=== PATIENT | female | born 1995 | race Caucasian/White ===

== ENCOUNTER 2017-02-06 12:18 | Emergency (ER) | payer MEDICAID ==
[~2017-02-06] VITALS: Ht 167.6 cm; Wt 78.5 kg
[2017-02-06 12:49] VITALS: Ht 167.6 cm; Wt 78.5 kg
[2017-02-06 15:41] LABS: ADD SCAN DIFF NO
[2017-02-06 15:42] LABS: ADD UMIC YES; URINE BILIRUBIN (Dip) NEGATIVE (NEGATIVE); URINE BLOOD (Dip) 3+ (NEGATIVE); URINE COLOR LT. YELLOW (YELLOW); URINE GLUCOSE (Dip) NEGATIVE (NEGATIVE); URINE KETONES (Dip) NEGATIVE (NEGATIVE); URINE LEUKOCYTE ESTERASE (Dip) NEGATIVE (NEGATIVE); URINE NITRITE (Dip) NEGATIVE (NEGATIVE); URINE TOTAL PROTEIN (Dip) NEGATIVE (NEGATIVE); URINE UROBILINOGEN (Dip) 0.2 E.U./dL (0.1-1.0)
[2017-02-06 15:43] LABS: BASOPHILS % 0.3 % (0.0-2.0); EOSINOPHILS # 0.2 10^3/ul (0.0-0.5); HEMATOCRIT 40.1 % (37.0-47.0); HEMOGLOBIN 13.5 g/dl (12.0-16.0); LYMPHOCYTES # 2.3 10^3/ul (0.8-2.9); LYMPHOCYTES % 24.9 % (15.0-51.0); MEAN CORPUSCULAR HEMOGLOBIN 30.3 pg (29.0-33.0); MEAN CORPUSCULAR HGB CONC 33.7 g/dl (32.0-37.0); MEAN CORPUSCULAR VOLUME 89.9 fl (82.0-101.0); MEAN PLATELET VOLUME 9.4 fl (7.4-10.4); MONOCYTE # 0.6 10^3/ul (0.3-0.9); MONOCYTES % 6.1 % (0.0-11.0); NEUTROPHILS % 66.4 % (39.0-77.0); PLATELET COUNT 329 10^3/UL (140-415); RED BLOOD COUNT 4.46 10^6/ul (4.20-5.40); RED CELL DISTRIBUTION WIDTH 13.3 % (11.5-14.5)
--- NOTE | 2017-02-06 15:55 | RADRPT ---
PROCEDURE: Obstetrical ultrasound . CLINICAL INDICATION: Vaginal bleeding TECHNIQUE: Multiple sonographic images of the pelvis were obtained utilizing a transabdominal and endovaginal technique. The images were reviewed on a PACS workstation. COMPARISON: None. FINDINGS: There is a single intrauterine present with the crown-rump length measuring 0.5 cm which c orresponds to a calculated gestational age of 6 weeks and 2 days. No heart tones are identifie d. The right ovary was not seen. The left ovary is normal and measures 3.5 x 2.4 x 2.9 cm. There is a 1.2 cm simple cyst. There is a trace amount of free fluid in the cul-de-sac. RPTAT: AA IMPRESSION: Single intrauterine at 6 weeks and 2 days. No heart tones noted, suspicious for demise versus early . Close follow-up is recommended. .Jarvis Mckay MD, MD Date Time Electronically viewed and signed by .Jarvis Mckay MD, on 02/06/2017 15:55 .S/
[2017-02-06 15:57] LABS: SQUAMOUS EPITHELIAL CELL,UR MODERATE
--- NOTE | 2017-02-06 16:15 | ERA ---
ER Documentation Chief Complaint Date/Time DATE: 02/06/17 TIME: 16:11 Chief Complaint VB AND 1 MONTH BLEEDING X 1 DAY, DENIES PAIN HPI Patient is a 21-year-old female who is 6 weeks 2 days complaining of vaginal bleeding. Patient's of the vaginal bleeding at first was spotting and now is dark brown. Patient states that she has never had symptoms like this before. Patient 1-2 months ago had a contraceptive device taken of the arm that was implanted in July. Patient denies any abdominal pain, dysuria, hematuria, discharge, vomiting, nausea, using more than 4 pads a day to control bleeding, dizziness, diarrhea, constipation, back pain, fever. This patient's first . ROS All systems reviewed and are negative except as per history of present illness. Allergies Allergies: Coded Allergies: No Known Allergy (Unverified , 08/17/14) PMhx/Soc Medical and Surgical Hx: pt denies Medical Hx, pt denies Surgical Hx Hx Alcohol Use: No Hx Substance Use: No Hx Tobacco Use: No Physical Exam Vitals Vital Signs Date Time Temp Pulse Resp B/P Pulse Ox O2 Delivery O2 Flow Rate FiO2 02/06/17 12:49 98.6 79 18 130/73 100 Physical Exam Const: Well-appearing 19-year-old female Head: Atraumatic Eyes: Normal Conjunctiva ENT: Normal External Ears, Nose and Mouth. Neck: Full range of motion..~ No meningismus. Resp: Clear to auscultation bilaterally Cardio: Regular rate and rhythm, no murmurs Abd: Soft, non tender, non distended. Normal bowel sounds Skin: No petechiae or rashes Back: No midline or flank tenderness Ext: No cyanosis, or edema Neur: Awake and alert Psych: Normal Mood and Affect Result Diagram: 02/06/17 1530 Results 24 hrs Laboratory Tests Test 02/06/17 15:17 02/06/17 15:30 Urine Color LT. YELLOW Urine Clarity CLEAR Urine pH 6.0 Urine Specific Mittie 1.025 Urine Ketones NEGATIVE Urine Nitrite NEGATIVE Urine Bilirubin NEGATIVE Urine Urobilinogen 0.2 E.U./dL Urine Leukocyte Esterase NEGATIVE Urine Microscopic RBC 2-5/HPF Urine Microscopic WBC 0-2/HPF Urine Squamous Epithelial Cells MODERATE Urine Hemoglobin 3+ Urine Glucose NEGATIVE% Urine Total Protein NEGATIVE White Blood Count 9.010^3/ul Red Blood Count 4.4610^6/ul Hemoglobin 13.5g/dl Hematocrit 40.1% Mean Corpuscular Volume 89.9fl Mean Corpuscular Hemoglobin 30.3pg Mean Corpuscular Hemoglobin Concent 33.7g/dl Red Cell Distribution Width 13.3% Platelet Count 70938^3/UL Mean Platelet Volume 9.4fl Neutrophils % 66.4% Lymphocytes % 24.9% Monocytes % 6.1% Eosinophils % 2.0% Basophils % 0.3% Nucleated Red Blood Cells % 0.0/100WBC Neutrophils # 6.010^3/ul Lymphocytes # 2.310^3/ul Monocytes # 0.610^3/ul Eosinophils # 0.210^3/ul Basophils # 0.010^3/ul Nucleated Red Blood Cells # 0.010^3/ul Beta HCG, Quantitative 62089.0mIU/ml Procedures/MDM 19-year-old female is presenting with a chief complaint of abdominal bleeding. Patient is 6 weeks . Went ahead and ordered a female senior mobile application developer workup including beta-hCG, labs and ultrasound. The ultrasound showed no heart tones as the fetus is only 6 weeks. There was a single intrauterine growth. All other labs were unremarkable. Physical exam was unremarkable. Speculum exam was deferred. Have advised the patient that she should follow-up with her PATIENT RELATIONS MANAGER in 2 days for repeat beta hCG measure. I have also advised patient to return to the emergency department immediately if symptoms worsen or change. Departure Diagnosis: Primary Impression: Threatened Additional Impression: Vaginal bleeding Condition: Stable Patient Instructions: Vaginal Bleed in Additional Instructions: Follow-up with your PATIENT RELATIONS MANAGER in 2 days for repeat hormone level checking. Bedrest and no vaginal penetration until then. Return to emergency department if symptoms worsen or change. JONH DIANA PA-C Feb 06, 2017 16:15
[2017-02-06 17:25] VITALS: BP 127/74; PULSE 82; RESP 16
== END 2017-02-06 17:26 | disposition home or self-care (01) ==
LOC: FTE 12:18
DX: O20.0 Threatened abortion (principal); Z3A.01 Less than 8 weeks gestation of pregnancy
CPT/HCPCS: 36415; 76801; 76817; 81001; 84702; 85025; 86900; 86901; Z7502; 81003

== ENCOUNTER 2017-09-14 09:18 | Inpatient (IN) | payer MEDICAID ==
[~2017-09-14] VITALS: Ht 165.1 cm; Wt 84.7 kg
[2017-09-14] MEDS ORDERED: PREN-93 PO (09:49)
[2017-09-14] MEDS ORDERED: FER325 PO (09:49)
[2017-09-14 09:50] VITALS: BP 110/64; PULSE 86; RESP 18; Ht 165.1 cm; Wt 84.7 kg
--- NOTE | 2017-09-14 12:29 | TRIAGE ---
OB Triage Datetime Report Generated by CPN: 09/14/2017 12:28 Datetime: 09/14/2017 09:53 Vaginal Exam Dilatation (cms): 3.0 Effacement (%): 80 Station: -2 Exam By: KHEMANI Vaginal Bleeding: None Cervix, Consistency: Soft Cervix, Position: Midposition Datetime: 09/14/2017 09:41 Labor Evaluation Monitor Mode: External Heart Rate Monitor Mode: External US Datetime: 09/14/2017 09:28 Assessment Type: Triage Maternal Assessment Level of Consciousness: Fully Conscious DTR's/Clonus: DTRs 2+; No Clonus Headache: Denies Blurred Vision: No Respiratory Effort: Unlabored; Regular Rhythm; Equal Expansion Breath Sounds, Left: Clear and Equal Breath Sounds, Right: Clear and Equal Nausea/Vomiting: Denies RUQ Epigastric Pain: Denies Lower Extremities Edema: None Degree: None Upper Extremities Edema: None Degree: None Facial Edema: None Fall Risk Assessment History of Falling: (0) No Secondary Diagnosis: (0) No Ambulatory Aid: (0) Bedrest/Nurse Assist IV Therapy: (0) No Gait: (0) Normal/Bedrest/Immobile Mental Status: (0) Oriented to Own Ability Fall Score: 0 Fall Risk Score Definition: No Risk: No action required Datetime: 09/14/2017 09:25 Time of Arrival: 09/14/2017 09:10 EGA: 38.1 Arrived By: Ambulatory Arrived From: Home Chief Complaint: pt here c/o uc's Movement: Present Contractions: Irregular Time Contractions Began: 09/13/2017 22:00 Rupture of Membranes: Denies Vaginal Bleeding: None Vaginal Discharge: Denies Recent Sexual Intercouse: Denies Abdominal Trauma: Not Applicable Patient Complaints: Contractions; Cramping; Back Pain Time Provider Notified: 09/14/2017 10:09 Provider Notified: JORGE Initial Plan: MEL/EMELY
[2017-09-14] MEDS ORDERED: MISOPROSTOL 200 MCG TAB PR PRN ×2 (12:30→20:30)
[2017-09-14] MEDS ORDERED: IBUPROFEN 600 MG TAB PO PRN (12:30)
[2017-09-14] MEDS ORDERED: OXYTOCIN 30 UNITS/LR 500 ML IV SCH ×2 (12:30)
[2017-09-14] MEDS ORDERED: LIDOCAINE 1% (MPF) 30 ML INJ INJ PRN (12:30)
[2017-09-14] MEDS ORDERED: OXYTOCIN 30 UNITS/LR 500 ML IV PRN ×2 (12:30→20:30)
[2017-09-14] MEDS ORDERED: METHYLERGONOVINE 0.2 MG INJ IM PRN ×2 (12:30→20:30)
[2017-09-14] MEDS ORDERED: CARBOPROST 250 MCG INJ IM PRN ×2 (12:30→20:30)
[2017-09-14] MEDS ORDERED: BUTORPHANOL 2 MG INJ IV PRN (12:30)
[2017-09-14 12:42] LABS: BASOPHILS % 0.2 % (0.0-2.0); EOSINOPHILS % 0.2 % (0.0-7.0); HEMATOCRIT 36.8 % (37.0-47.0); HEMOGLOBIN 12.4 g/dl (12.0-16.0); LYMPHOCYTES # 1.9 10^3/ul (0.8-2.9); LYMPHOCYTES % 20.2 % (15.0-51.0); MEAN CORPUSCULAR HEMOGLOBIN 30.2 pg (29.0-33.0); MEAN CORPUSCULAR HGB CONC 33.7 g/dl (32.0-37.0); MEAN CORPUSCULAR VOLUME 89.5 fl (82.0-101.0); MONOCYTE # 0.6 10^3/ul (0.3-0.9); MONOCYTES % 6.4 % (0.0-11.0); NEUTROPHIL # 6.9 10^3/ul (1.6-7.5); NEUTROPHILS % 72.7 % (39.0-77.0); PLATELET COUNT 254 10^3/UL (140-415); RED BLOOD COUNT 4.11 10^6/ul (4.20-5.40); RED CELL DISTRIBUTION WIDTH 15.4 % (11.5-14.5); WHITE BLOOD COUNT 9.4 10^3/ul (4.8-10.8)
[2017-09-14] MEDS ORDERED: LACTATED RINGER'S 1,000 ML IV PRN (13:00)
[2017-09-14] MEDS: LACTATED RINGER'S 1,000 ML IV SCH ×2 (13:04→16:36)
[2017-09-14 13:09] LABS: INR 0.96; PROTIME 12.8 Sec (12.2-14.2)
[2017-09-14 13:10] LABS: PARTIAL THROMBOPLASTIN TIME 27.4 Sec (25.0-35.0)
--- NOTE | 2017-09-14 17:50 | HP ---
Date/Time of Note Date/Time of Note DATE: 09/14/17 TIME: 17:49 OB - History Hx of Present Chief Complaint: contractions Estimated Due Date: Sep 27, 2017 : 3 Para: 1 Spontaneous : 1 Therapeutic : 0 Care: Good Care Ultrasounds: Normal mid trimester US Obstetrical Complications: None Medical Complications: None Past Family/Social History * Past Medical, Surgical, Family and Obstetric Histories reviewed from chart. GBS Status: Negative OB Admission Exam Vital Signs Vital Signs Vital Signs Date Time Temp Pulse Resp B/P Pulse Ox O2 Delivery O2 Flow Rate FiO2 09/14/17 09:50 98.4 86 18 110/64 94 Room Air Physical Exam HEENT: WNL Heart: Rhythm Normal Lungs: Clear, Equal Abdomen: WNL Extremities: Normal Reflexes: Normal Cervical Dilatation: 4cm Effacement: 100% Station: -1 Membranes: Ruptured Amniotic Fluid: Clear Heart Rate: 120's Accelerations: Accelerations Present Decelerations: No Decelerations Varibility: Moderate Contractions on Admission: < 5 Minutes Apart Last 72 hours Lab Results CBC & BMP 09/14/17 12:20 OB Assessment/Plan Reason for admission: active labor Plan: Expectant Management NAV PATEL MD Sep 14, 2017 17:50
[2017-09-14] MEDS ORDERED: DIPHENHYDRAMINE 50 MG INJ IV PRN (18:00)
[2017-09-14] MEDS ORDERED: FENTAnyl 2MCG/ML-ROPIV 0.2% 100 ML BAG EPI SCH (18:00)
[2017-09-14] MEDS ORDERED: EPHEDrine SULFATE 50 MG/5 ML SYG IV PRN (18:00)
[2017-09-14] MEDS ORDERED: ONDANSETRON 4 MG INJ IV PRN (18:00)
[2017-09-14] MEDS ORDERED: NALOXONE (0.4 MG/ML) INJ IV PRN (18:00)
--- NOTE | 2017-09-14 19:23 | LDN ---
Date/Time of Note Date/Time of Note DATE: 09/14/17 TIME: 19:21 Delivery Summary Weeks of Gestation 38 weeks and 1 day Placenta Delivered: Spontaneously Meconium: none Episiotomy: No Perineal laceration: 0 Anesthesia type: Epidural Estimated blood loss: 200 Sponge & Needle done & correct: Yes All needle counts correct: Yes Any foreign bodies felt in the: No Problems: Infant Delivery Information Sex Infant Sex: male Apgars 1 Minute: 8 5 Minute: 9 Suctioning Nose & mouth suctioned at andrea: Yes Delee suction performed: No Umbilical Cord Umbilical cord with: 3 Vessels Cord presentations: no nuchal cord Cord Blood was obtained: Yes Mother & Baby Disposition Disposition Mom & Baby to Maternity; Good: Yes NAV PATEL MD Sep 14, 2017 19:23
[2017-09-14] MEDS: OXYTOCIN 30 UNITS/LR 500 ML IV SCH ×2 (19:24→23:44)
[2017-09-14 20:25] VITALS: BP 110/65; RESP 18
[2017-09-14] MEDS ORDERED: HYDROCODONE/APAP (5/325) TAB PO PRN (20:30)
[2017-09-14] MEDS ORDERED: ACETAMINOPHEN 325 MG TAB PO PRN ×2 (20:30)
[2017-09-14] MEDS ORDERED: DIBUCAINE 1% 30 GM OINT PR PRN (20:30)
[2017-09-14] MEDS ORDERED: BENZOCAINE 20% 56 ML SPRAY TOP PRN (20:30)
[2017-09-14] MEDS ORDERED: WITCH HAZEL/GLYCERIN PAD PR PRN (20:30)
[2017-09-14 21:45] VITALS: BP 107/59; PULSE 85; RESP 18
[2017-09-14] MEDS: SENNA/DOCUSATE NA (8.6MG/50MG) TAB PO SCH (22:53)
[2017-09-14] MEDS: IBUPROFEN 600 MG TAB PO SCH (23:40)
[2017-09-14 23:49] VITALS: BP 114/58; PULSE 99; RESP 18
[2017-09-15] MEDS: OXYTOCIN 30 UNITS/LR 500 ML IV SCH ×2 (03:34→08:20)
[2017-09-15 03:52] VITALS: BP 109/61; PULSE 81; RESP 18
[2017-09-15] MEDS: IBUPROFEN 600 MG TAB PO SCH ×3 (05:41→18:07)
[2017-09-15 07:55] VITALS: BP 105/61; PULSE 74; RESP 16
[2017-09-15] MEDS: SENNA/DOCUSATE NA (8.6MG/50MG) TAB PO SCH ×2 (08:18→20:30)
[2017-09-15 09:01] LABS: BASOPHILS % 0.2 % (0.0-2.0); EOSINOPHILS % 0.3 % (0.0-7.0); HEMATOCRIT 31.7 % (37.0-47.0); HEMOGLOBIN 10.8 g/dl (12.0-16.0); MEAN CORPUSCULAR HEMOGLOBIN 30.5 pg (29.0-33.0); MEAN CORPUSCULAR HGB CONC 34.1 g/dl (32.0-37.0); MEAN CORPUSCULAR VOLUME 89.5 fl (82.0-101.0); MEAN PLATELET VOLUME 10.2 fl (7.4-10.4); MONOCYTE # 1.1 10^3/ul (0.3-0.9); MONOCYTES % 10.6 % (0.0-11.0); NEUTROPHIL # 7.2 10^3/ul (1.6-7.5); NEUTROPHILS % 69.5 % (39.0-77.0); PLATELET COUNT 211 10^3/UL (140-415); RED BLOOD COUNT 3.54 10^6/ul (4.20-5.40); RED CELL DISTRIBUTION WIDTH 15.2 % (11.5-14.5); WHITE BLOOD COUNT 10.4 10^3/ul (4.8-10.8)
[2017-09-15] MEDS: LACTATED RINGER'S 1,000 ML IV SCH ×2 (10:51→12:29)
[2017-09-15] MEDS: LACTATED RINGER'S 1,000 ML IV* SCH ×3 (10:51→12:24)
[2017-09-15 12:06] VITALS: BP 121/69; PULSE 76; RESP 16
[2017-09-15 15:45] VITALS: BP 98/55; PULSE 88; RESP 20
--- NOTE | 2017-09-15 16:48 | QN ---
Documentation Comment ppd1 pt doing well vss exam wnl a/p ppd1 DERECK Carmona MD Sep 15, 2017 16:48
[2017-09-15 20:30] VITALS: BP 105/64; PULSE 87; RESP 18
[2017-09-16] MEDS: IBUPROFEN 600 MG TAB PO SCH ×4 (00:26→17:25)
[2017-09-16 04:30] VITALS: BP 95/51; PULSE 73; RESP 20
[2017-09-16 07:30] VITALS: BP 108/60; PULSE 79; RESP 18
[2017-09-16] MEDS ORDERED: DIPHTH/TET/ACEL PERTUSS (ADULT) 0.5 ML VIAL IM* ONE (09:00)
[2017-09-16] MEDS ORDERED: INFLUENZA VIRUS VACCINE 0.5 ML (DISPENSING) IM* ONE (09:00)
[2017-09-16] MEDS: SENNA/DOCUSATE NA (8.6MG/50MG) TAB PO SCH (10:05)
[2017-09-16 16:00] VITALS: BP 104/64; PULSE 85; RESP 18
--- NOTE | 2017-09-16 18:09 | DS ---
Date/Time of Note Date/Time of Note DATE: 09/16/17 TIME: 18:08 Obstetrical Discharge Record Final Diagnosis Final Diagnosis: Term delivered Vaginal Delivery Obstetrical Delivery: Spontaneous Condition on Discharge Physical Assessment Voiding: Yes Bowel Movement: Yes Breast: Soft, non-tender, Filling Fundus: Firm Calf Tenderness: No Patient Condition: Stable NAV PATEL MD Sep 16, 2017 18:09
== END 2017-09-16 18:52 | disposition home or self-care (01) | DRG 775 ==
LOC: OBT 09:18 → L-D 09:20 → OBT 12:00 → L-D 12:19 → PP1 20:29
PROVIDERS: ADMIT Obstetrics & Gynecology; ATTEND Obstetrics & Gynecology
PROC: 10E0XZZ Delivery of Products of Conception, External Approach (ICD-10-PCS; principal; 2017-09-14)
PROC: 3E033VJ Introduction of Other Hormone into Peripheral Vein, Percutaneous Approach (ICD-10-PCS; 2017-09-14)
DX: O99.02 Anemia complicating childbirth (principal); Z37.0 Single live birth; Z3A.38 38 weeks gestation of pregnancy
CPT/HCPCS: 62319; 85025; 85610; 85730; 86592; 86900; 86901; 90686; 90715; G0463; J2210; J2590; J3010; J7120